=== PATIENT | female | born 2005 | race Caucasian/White ===

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

== ENCOUNTER 2025-03-10 00:41 | Day surgery (SDC) | payer BC, SELFPAY ==
[2025-03-05 13:34] VITALS: BMI 29.1
--- NOTE | 2025-03-05 13:45 | PC.NURSE ---
[facility] has started construction of its new state of the art ER which will open Spring 2026. With this, we anticipate parking may be a challenge for some our surgical patients and families. Parking spaces are limited but are available for all Surgical, obstetrics, and ER patients sharing this lot. If you arrive and find you are having a hard time finding a parking space, please note that we understand the challenges, please drive around the hospital and park near Hospital Entrance 1. When you enter this entrance, you can ask a volunteer to direct or take you back to the surgical waiting area to check in. We appreciate everyone?s understanding of these expected challenges while we build for your future. Report to the Outpatient Waiting Room, entrance under the green pavilion located off [address], at time 0600 on date 03/10/25 . Planned Procedure Time: 0730 .? Time changes happen often and if your time is changed the preop area will call you the afternoon before. - You and your visitor will be asked to self-screen and do not enter if you have any COVID symptoms. Please call surgeon if you need to reschedule. - A mask is optional within the hospital at this time. Patients may have clear liquids (water, carbonated beverages, clear teas, apple juice) until 3 hours prior to surgery with a maximum of 20 ounces. - No food from midnight until time of surgery and no smoking, or chewing tobacco (or any form of nicotine). No chewing gum, candy or mints. Take only the following medications with a SIP of water on the morning of surgery: Vyvanse, Control- Natalie DO NOT STOP ANY OF YOUR OTHER PRESCRIPTION MEDICATIONS PRIOR TO SURGERY EXCEPT THE FOLLOWING Hold all vitamins and supplements for 3 days per anesthesiologist. Medications to discontinue per physician: NA Please no make-up, nail [place], hairspray, perfume, deodorant, or body powder the day of surgery.? No jewelry (including any body piercings) or valuables the day of surgery, leave them at home.? Please take a shower or bath the night before, or the morning of, surgery with an antibacterial soap.? Wear comfortable, loose fitting clothing.? Children are encouraged to wear pajamas. - Jewelry must be removed prior to entering the operating room.? Rings and piercings that are not removed may be cut off. - The hospital will not accept responsibility for valuables.? - Please leave all valuables, including medications, at home the day of surgery. If you are going home after surgery, a licensed petrol tanker driver must drive you home.? - NO public transportation without another adult if you receive anesthesia. - We recommend that an adult stay with you for 24 hours following discharge. - We also recommend that you do not drive, make important decision, drink alcoholic beverages, or take any drugs that were not prescribed by your health care provider for at least 24 hours after your discharge time. Follow any additional instructions given to you from your surgeon. Telephone instructions given to ____patient and asked if any additional questions and then verbalized understanding. Patient advised to call surgeon office or pre surgery nurse liaison [phone] if any additional questions.
[2025-03-10] VITALS (7 sets, daily range): BP systolic 123–154; BP diastolic 80–96; PULSE 67–95; RESP 15–18; TEMP 36.4–36.6; O2SAT 98–100
--- OUTSIDE RECORDS SUMMARY | 2025-03-10 00:44 | XMS_ITS | Clinical Summary ---
Author Organization [facility] Address [address] [place] [id number] Care Team Providers Care Day Haul Youth Supervisor Name Role Phone Unavailable Primary Care Provider Unavailabl e Social History Tobacco Use Types Packs/Day Years Used Date Smoking Tobacco: Never Assessed Comments Unknown Sex and Gender Information Value Date Recorded Sex Assigned at Not on file Legal Sex Female 6:44 PM CDT Gender Identity Not on file Sexual Orientation Not on file Plan of Treatment Health Maintenance Due Date Last Done Comments Annual Physical 09/25/2007 HPV Vaccines (1 - 3-dose series) 09/25/2019 Meningococcal B Vaccine (1 o f 2 - Standard) 2020 Hepatitis C 2022 DTaP, Tdap and Td Vaccines ( 1 - Tdap) 09/25/2023 Hepatitis B Vaccines (1 of 3 - 19+ 3-dose series) 09/25/2023 COVID-19 Vaccine ( - 2024-2 6 season) 2024 Influenza Adult (#1) 2024 Hepatitis A Vaccines Aged Out No long er eligible based on patient's age to complete this topic Meningococcal Vaccine Aged Out No zina edda eligible based on patient's age to complete this topic Pneumococcal Vaccine: Pediat rics (0 to 5 Years) and At-Risk Patients (6 to 49 Years) Aged Out No longer eligible b ased on patient's age to complete this topic RSV Immunizations Under 20 Months Aged Out No longer eligible based on patient's age to complete this topic
--- OUTSIDE RECORDS SUMMARY | 2025-03-10 00:44 | XMS_ITS | Patient Health Record ---
Author Organization [facility] Address [address] [place] [address] Care Team Providers Care Glass Lathe Operator Name Role Phone Rita Moreno APRN Primary Care Provider Unava ilable Zoraida Peyton Unavailable [phone] Kyle Sierra Unavailable [phone] Allergies No Known Allergies Results Component Value Reference Range Notes UDT Reviewed date:01/06/2025 02:47:45 PM Interpretation: Performing Lab: Notes/Report: Amphetamine (AMP) N 0 - 1000 ng/ml Buprenorphine (BUP) N 0 - 10 ng/ml Oxazepam (BZO) N 0 - 300 ng/ml Cocaine (MAURICIO) N 0 - 300 ng/ml Methamphetamine (mAMP) N 0 - 300 ng/ml Methylenedioxymethamphetamine (MDMA) N 0 - 500 ng/ml Morphine (MOP) N 0 - 25 ng/ml Methadone (MTD) N 0 - 300 ng/ml Oxycodone (OXY) N 0 - 300 ng/ml THC N 0 - 50 ng/ml x N 0 - 1000 ng/ml x N 0 - 1000 ng/ml x N 0 - 300 ng/ml x N 0 - 300 ng/ml Reason For Referral No Information Medications Medication SIG (Take, Route, Frequency, Duration) Notes Start Date End Date Status Drospirenone-Ethinyl Estradiol 3-0.03 MG Tablet Oral; Duration: 21 Days Active Lisdexamfetamine Dimesylate 40 MG Capsule 1 capsule in the morning Orally Once a day; Duration: 30 days 02/07/2025 Active Social History Tobacco Use: Social History Observation Description Date Details (start date - stop date) Never Smoker NA - NA Sex Assigned At : Social History Observation Description Sex Assigned At Female Social History Miscellaneous: Social Info Question Answer Notes Safety issues: Are there any firearms in the house? Ye s Social History Social Info Question Answer Notes Household: Marital Status: Single Number of Adults in household: 4 Number of Children in Household: 1 Level of Education: Not Finished College Drug/Alcohol: Social Info Question Answer Notes Drugs Have you used drugs other than those for medical reasons in the past 12 months? No AUDIT-C (Standard) Did you have a drink containing alcohol in the past year? No Interpretation Negative Caffeine Intake: none Tobacco Use: Social Info Question Answer Notes Tobacco Control (Standard) Tobacco use: Nonsmoker Additional Details Category Social Info Options Details Drug/Alcohol: Do you smoke marijuana? Den ies Problems Problem Type SNOMED Code ICD Code Onset Dates Problem Status W/U Status Risk Notes Problem Attention deficit hyperactivity disorder, combined type (42683981) Attention-deficit hyperactivity disorder, combined type (F90.2) Active confirmed Problem Unable to concentrate (finding) (81417590) Difficulty concentrating (R41.840) Active confirmed Vital Signs Heart Rate 112 /min 02/07/2025 Height-cm 167.64 cm 02/07/2025 Blood pressure diastolic 86 mm Hg 02/07/2025 Weight-kg 79.38 kg 02/07/2025 Height 66 in 02/07/2025 Blood pressure systolic 131 mm Hg 02/07/2025 Weight 175 lbs 02/07/2025 BMI 28.24 kg/m2 02/07/2025 Procedures Procedure Date Ordered Date Performed Result Body Sit e ADHD Testing 12/23/2024 N/A Encounters Encounter Location Date Provider Diagnosis [facility] [address] [facility] [address] [place] [address] 12/23/2024 Peyton Conway Difficulty concentrating R41.840 [facility] [place] [address] 12/30/2024 Kyle Sierra Attention deficit hyperactivity disorder (ADHD), unspecified ADHD type F90.9 [employer] [facility] [address] [facility] [address] [place] [address] 01/06/2025 Peyton Conway Attention-deficit hyperactivity disorder, combined type F90.2 [facility] [address] [facility] [address] [place] [address] 02/03/2025 Peyton Conway [facility] [address] [place] [address] 02/07/2025 Peyton Conway Attention-deficit hyperactivity disorder, combined type F90.2 Assessments Encounter Date Diagnosis (ICD Code) Assessment Notes Treatment Notes Treatment Clinical Notes Section Notes 01/06/2025 Attention-defici t hyperactivity disorder, combined type (ICD-10 - F90.2) ADHD Stimulant Education -Discussed with patient risk of misuse, abuse, and addiction before prescribing stimulant medicines. -Counseled not to share their prescribed stimulant with anyone else. -Educated patient will monitor during treatment: regularly assess and monitor them for signs and symptoms of nonmedical use, addiction, and potential diversion, which may be evidenced by more frequent renewal requests and medication metabolites absent from urine drug screens. -Random UDS (at least every three months or more frequently deemed by provider). -Per office policy, only prescribed to local pharmacy in [place], no early refills on control substance. 12/23/2024 Difficulty concentrating (ICD-10 - R41.840) Pre-treatment evaluation and contraindications Before initiating treatment with a stimulant in adults, we review their cardiovascular history, including chest pain, palpitations, syncope, myocardial infarction, arrhythmia, valvular disease, and family history. We measure blood pressure and pulse in all patients and obtain an electrocardiogram (ECG) in individuals with cardiac history or cardiac symptoms such as palpitations or chest pain. In individuals with a cardiac history, or when findings outside normal limits are seen, we consult a assistant producer to determine whether the results are sufficiently severe to avoid these medications. We also rule out DANIEL; if you are using cannabis, are heavy alcohol, or are using other street drugs and have a history of DANIEL, than we consider non-stimulant treatment. We also do routine and random UDT If you refuse or fail to give urine for urine, then we will not prescribe controlled substances. If your urine comes positive for medicine (which are not prescribed to you) and illicit drugs (including Cannabis) then we will not prescribe a controlled substance There is a charge for Stimulant refills 02/07/2025 Attention-defici t hyperactivity disorder, combined type (ICD-10 - F90.2) ADHD Stimulant Education -Discussed with patient risk of misuse, abuse, and addiction before prescribing stimulant medicines. -Counseled not to share their prescribed stimulant with anyone else. -Educated patient will monitor during treatment: regularly assess and monitor them for signs and symptoms of nonmedical use, addiction, and potential diversion, which may be evidenced by more frequent renewal requests and medication metabolites absent from urine drug screens. -Random UDS (at least every three months or more frequently deemed by provider). -Per office policy, only prescribed to local pharmacy in [place], no early refills on control substance. 12/30/2024 Attention deficit hyperactivity disorder (ADHD), unspecified ADHD type (ICD-10 - F90.9) Patient Name: Noemi Walker Date of : Assessment Date: Group: Female, Age 18-24 Report Type: ADHD Assessment Assessment Tool: ASRS v1.1 - Part A Questionnaire and Cognitive Battery Findings: The ASRS v1.1 - Part A score is 6, which exceeds the threshold of 3 and is classified as indicative of ADHD. Additionally, three cognitive markers fall outside the typical range, supporting attentional and executive function difficulties. In the Attention task, the patient made 4 errors (85th percentile) with a significantly prolonged reaction time (3339 milliseconds, 90th percentile), indicating slower and less accurate performance. Impulsivity was flagged as less accurate, but not faster, suggesting inefficiency without compensatory speed. Spatial Working Memory scored at the 15th percentile, indicating difficulties retaining and manipulating spatial information over short periods, which may affect real-world planning and organization. Response Inhibition performance showed mildly impaired accuracy and cognitive control. The number of errors was low but in the 15th percentile. Interference ratio for reaction time was in the 85th percentile, suggesting the patient required more time to manage conflicting information. Sustained Attention results were mixed but suggestive of attentional instability. Reaction time variability (90th percentile) and slowing after errors (76th percentile) reflect inconsistency and increased effort in recovering from performance errors. Interpretation: These results are consistent with ADHD, likely of the inattentive or combined presentation. The elevated ASRS score, combined with slower reaction times, reduced spatial working memory, and high variability across attention-relate d tasks, suggest significant functional inefficiencies in attention regulation and executive control. Recommendations: 1. Recommend starting treatment with non-stimulant medication such as atomoxetine or extended-release guanfacine, which may support attentional stability and executive function. 2. If non-stimulant options are insufficient, stimulant medication may be considered. However, stimulant treatment is not recommended if the patient is using or abusing drugs, alcohol, or cannabis. 3. Prior to initiating stimulant therapy, a urine drug screen should be conducted. Follow-up visits are essential for dosage adjustments and monitoring of blood pressure and weight. 4. Strongly encourage non-pharmacologi ryan interventions, including: - Attention training exercises and digital cognitive training tools - Time management strategies such as task segmentation, planners, and visual timers - Cognitive-behavi oral therapy to build metacognitive awareness and focus regulation - Structured routines and reduced distractions in learning or work environments These findings should be interpreted alongside a full clinical interview to support diagnosis and develop an individualized treatment plan. 12/23/2024 Other History of ADHD diagnosis in 2nd grade. Pt unsure of formality of diagnostic evaluation at this time, no current access to records. Schedule for ADHD evaluation to confirm diagnosis, provide diagnostic baseline. Await for results prior to initiating medication therapy. -Assessment and treatment plan reviewed with patient. -Compliance with treatment plan importance discussed. -Discussed the risks/benefits of this medication -Discussed medication side effects. -Contact office if symptoms worsen. -Discussed that it can take up to 6-8 weeks to see full therapeutic effects of psychotropic medications. -Crisis prevention hotline 988. 01/06/2025 Other ADHD eval reviewed, supportive of diagnosis Start lisdexamfetamine 40mg daily for ADHD management Patient educated on all medications including potential benefits, side effects, risks. Educated on proper dosing schedule and importance of compliance. [place] PDMP report checked and consistent with prescription history, no controlled substance prescriptions from other providers. UDT completed today -Assessment and treatment plan reviewed with patient. -Compliance with treatment plan importance discussed. -Discussed the risks/benefits of this medication -Discussed medication side effects. -Contact office if symptoms worsen. -Discussed that it can take up to 6-8 weeks to see full therapeutic effects of psychotropic medications. -Crisis prevention hotline 988. 02/07/2025 Other Stable on current medication regimen, continue at current doses. -Refills sent in today -No concerns today Patient educated on all medications including potential benefits, side effects, risks. Educated on proper dosing schedule and importance of compliance. [place] report checked and consistent with prescription history, no controlled substance prescriptions from other providers. -Assessment and treatment plan reviewed with patient. -Compliance with treatment plan importance discussed. -Discussed the risks/benefits of this medication -Discussed medication side effects. -Contact office if symptoms worsen. -Discussed that it can take up to 6-8 weeks to see full therapeutic effects of psychotropic medications. -Crisis prevention hotline 687. Plan Of Treatment Pending Test Test Name Order Date ADHD Testing 12/23/2024 Insurance Providers Payer Name Payer Address Payer Phone Subscriber Number Group Number Insured Name Patient Relationship to Insured Coverage Start Date Coverage End Date [facility] [address] [place] [address] [id number] Noemi Walker Self - patient is the insured Medical (General) History Medical History History ICD Code ADHD PCOS Past Psychiatric History: Anxiety Disord er undefined abdominal aortic aneurysm: No chronic fatigue syndrome: No essential tremor: No hyperlipidemia: No Parkinson's disease: No restless leg syndrome: No subdural hematoma: No type 1 diabetes mellitus: No type 2 diabetes mellitus: No vitamin B12 deficiency: No vitamin D deficiency: No atrial fibrillation: No hypertension: No stroke: No
--- OUTSIDE RECORDS SUMMARY | 2025-03-10 00:44 | XMS_ITS | Clinical Summary ---
Author Organization [facility] Address [address] [place] [id number] Care Team Providers Care Plate Molder Name Role Phone Unavailable Primary Care Provider Unavailabl e Social History Tobacco Use Types Packs/Day Years Used Date Smoking Tobacco: Never Assessed Comments Unknown Sex and Gender Information Value Date Recorded Sex Assigned at Not on file Legal Sex Female 10:19 AM CLINICAL SERVICES PROFESSIONAL Gender Identity Not on file Sexual Orientation Not on file Plan of Treatment Health Maintenance Due Date Last Done Comments Hepatitis C Virus (HCV) Screening 2004 Meningococcal B Immunization (1 of 2 - Standard) 2020 Influenza Immunization (#1) 11/25/202412/26, 11/22/2019, 01/07/2019, Additional history exists SARS-COV-2 Immunization ( season) 2024 03/28/2021, 08/30/2020, 08/09/2020 Respiratory Syncytial Virus (RSV) Immunization (Adult) (1 - 1-dose 75+ series) 09/25/2079 Hepatitis B Immunization Completed 006, 02/07/2005, 2004 Pneumococcal Immunization Combined Aged Out 10/10/2005, 04/11/2005, 02/07/2005, Additional history exists No longer eligible based on patient's age to complete this topic Hepatitis A Immunization Discontinued 01/09/2007, 12/25 Measles Mumps Rubella (MMR) Immunization Discontinued 10/09/2008, 10/10/2005 Polio (IPV) Immunization Discontinued 009, 04/11/2005, 02/07/2005, Additional history exists Varicella Immunization Discontinued 10/09/2008, 2005 DTaP/Tdap/Td Immunization Discontinued 2015, 10/09/2008, 01/09/2006, Additional history exists TdaP Immunization Completed 10/29/2015 Human Papillomavirus (HPV) Immunization Completed 07/29/2016, 01/13/2016, 10/29/2015 Meningococcal Immunization (ACWY) Completed 10/22/2020, 10/29/2015 Rotavirus Immunization Aged Out No lo nger eligible based on patient's age to complete this topic
--- OUTSIDE RECORDS SUMMARY | 2025-03-10 00:44 | XMS_ITS | Clinical Summary ---
Author Organization [facility] Address [address] [place] [address] Care Team Providers Care Entry Specialist Name Role Phone Annamarie Jansen MD Primary Care Provider [phone] Source Comments [facility],non-owned Affiliates and Associated Physician Practices is amultiple site organization consisting of ambulatory clinics and hospital sitesin [place], [place], [place] and [place]. This disclosure is being madepursuant to the Care Everywhere program and may not contain all information available regarding this patient. Last updated 17.[employer] Allergies No known active allergies Medications * Be aware that medications may not be up to date on this document. Alwaysverify current medications with the patient. XULANE 150-35 MCG/24HR patch Apply 1 (one) patch to affected area every 7 days 0 Active lisdexamfetamine (Vyvanse) 60 MG capsuleIndications :Attention deficit hyperactivity disorder (ADHD), predominantly inattentive type Take 1 (one) capsule by mouth every morning 30 capsule 3 Active Active Problems Problem Noted Date Diagnosed Date Elevated blood pressure reading 10/22/2020 Elevated cholesterol with high triglycerides Attention deficit hyperactivity disorder (ADHD) 03/25/2019 Resolved Problems Problem Noted Date Diagnosed Date Resolved Date Encounter for medication monitoring 11/22/2019 11/22/2019 Immunizations Immunization Administration Dates Next Due DTAP HIB IPV 10/09/2008 DTaP VACCINE IM (6wk-6yrs) 01/09/2006,,02/07/2005,12/06 HEP A PEDS 2 DOSE 01/09/2007,01/09/2006 HEP B VACCINE, PED/ADOL 04/11/2005,02/07/2005, HIB-PRP-OMP 3 DOSE 01/09/2006,02/07/2005, 005 Human Papilloma Virus Nineva lent Vaccine 07/29/2016,01/13/2016,10/29/2015 INFLUENZA T4L8-03, HISTORIC VACCINE 03/17/2009,1 04/11/2008 INFLUENZA VACCINE 01/07/2019, 8,01/19/2017,12/24,01/05/2015,12/24/2013,01/07/2013 ,12/29/2011,02/01/2011,02/02/2010,12/26 INFLUENZA VACCINE, CELL CULT URE, QUADR. (FLUCELVAX QUADRIVALENT; 6MO+) (CCIIV4) 02/11/2022 INFLUENZA VACCINE, QUADR. (F LUZONE; FLULAVAL; FLUARIX; AFLURIA QUADRIVALENT; 6MO+), 0.5 ML (IIV4) 01/13/2021,11/22/2019 MENINGOCOCAL MENINGITIS 10/29/2015 MENINGOCOCCAL ACWY (MCV4P) VAC IM 10/22/2020 MMR 10/09/2008,10/10/2005 PNEUMOCOCCAL PCV7 CONJ, PEDS 10/10/2005, 04/11/2005,02/07/2005,12/06 POLIO IPV 04/11/2005,02/07/2005,2004 TDAP (7yrs+) 10/29/2015 VARICELLA 10/09/2008,10/10/2005 Family History Medical History Relation Name Comments Hyperlipidemia Mother Relation Name Status Comments Mother Social History Tobacco Use Types Packs/Day Years Used Date Smoking Tobacco: Never PHQ-2 Answer Date Recorded PHQ2 TOTAL SCORE 0 06/23/2022 Comments Unknown Sex and Gender Information Value Date Recorded Sex Assigned at Not on file Legal Sex Female 5:44 AM [employer] Gender Identity Not on file Sexual Orientation Not on file Last Filed Vital Signs Vital Sign Reading Time Taken Comments Blood Pressure 134/87 06/23/2022 2:36 PM CDT Pulse 104 06/23/2022 2:36 PM CDT Temperature 37.1 C (98.7 F) 06/23/2022 2:36 PM CDT Respiratory Rate 24 06/11/2014 2:06 PM CDT Oxygen Saturation 100% 06/11/2014 12:36 PM CDT room air Inhaled Oxygen Concentration - - Weight 70.3 kg (155 lb) 06/23/2022 2:36 PM CDT Height 163.8 cm (5' 4.5) 06/23/2022 2:36 PM CDT Body Mass Index 26.19 06/23/2022 2:36 PM CDT Plan of Treatment Health Maintenance Due Date Last Done Comments HIV SCREENING 09/25/2019 CHLAMYDIA/GONORRHEA SCREENING 2020 MENINGOCOCCAL (Group B) VACC INE SHARED DECISION-MAKING (1 of 2 - Standard) 2020 HEPATITIS C SCREENING 09/20/2022 DEPRESSION SCREENING 03/27/2024 06/23/2022, 10/23/19 22 COVID-19 VACCINE (5 2024-2 6 season) 2024 12/24/2021, 03/28/2021, 08/30/2020, Additional history exists INFLUENZA VACCINE (#1) 2024 , 01/13/2021, 11/22/2019, Additional history exists DTAP/TDAP/TD VACCINES (7 - T d or Tdap) 10/28/2025 10/29/2015, 10/09/2008, 01/09/2006, Additional history exists ZOSTER VACCINE (1 of 2) 2054 HEPATITIS B VACCINE Completed 04/11/2005, 02/07/2005, 2004 PNEUMOCOCCAL VACCINE Completed 10/10/2005, 04/11/2005, 02/07/2005, Additional history exists HIB VACCINE Completed 10/09/2008, 12/25, 02/07/2005, Additional history exists HPV VACCINE Completed 07/29/2016, 12/25, 10/29/2015 MENINGOCOCCAL GROUPS A/C/Y/W VACCINE Completed 10/22/2020, 10/29/2015 Insurance ANTHEM Care Teams Entry Specialist Relationship Specialty Start Date End Date Annamarie Jansen MD PCP - General Pediatrics 03/25/19
[2025-03-10] MEDS: ACETAMINOPHEN 500 MG TABLET 1000 MG PO (06:32)
[2025-03-10] MEDS: OXYMETAZOLINE HCL 0.05% NAS 15 ML BTL (*BKC) 1 SPRAY NASAL (06:35)
[2025-03-10] MEDS: LACTATED RINGERS 1,000 ML 30 ML IV CONT ×2 (06:45→08:38)
--- NOTE | 2025-03-10 06:55 | P.PNAN_ITS ---
Anes - Initial Pre Proc Eval Procedure: Operation Date: 03/10/25 07:30 Proposed Procedures p Fusion Guided Right Ethmoidectomy, Bilateral Turbinate Reduction - Palmer Bennett MD s Septoplasty - Palmer Bennett MD Date/Time: 03/10/25 06:55 Surgeon: Palmer Bennett MD Pre Op Diagnosis: deviated septum, turbinate hypertrophy Patient Data Age: 19 Gender: F Height: 1.65 m Weight: 79.5 kg Allergies Allergy/AdvReac Type Severity Reaction Status Date / Time No Known Allergies Allergy Verified 03/10/25 06:22 Home Medications ?Medication ?Instructions ?Recorded ?Confirmed ?Type drospirenone 3 mg-ethinyl 1 tablet PO Q24H #112 tabs 0 10/08/24 03/10/25 Rx estradiol 0.03 mg tablet (Natalie (28)) lisdexamfetamine 40 mg capsule 40 mg PO DAILY 03/05/25 03/10/25 History (Vyvmaine) Patient hx anesthesia problems: none Family hx anesthesia problems: none Results Review: All pre-operative results and documents have been reviewed as part of the pre- operative evaluation. [facility] Past Medical History Medical History PCOS (polycystic ovarian syndrome) ADHD Family History Family History Mother Endometriosis Social History Social History Smoking status: Never smoker Alcohol intake: never Substance use: never Substance use type: does not use Lack of Transportation: No Lack of Food: Never True Current Housing: I Have Housing Concerned About Future Housing: No Difficulty Paying Gas/Electric Bills: No Difficulty Paying for Meds: No Currently Unemployed: No Education: High School Diploma/GED Difficulty w/ Childcare or Family Care: No Living arrangements: with family Occupation/Education: student Additional occupation/education comments: college [employer] Gender identity (if verbalized by the patient): Female Sexual Orientation (if Verbalized by the Patient): Bisexual Spiritual care concerns: No Agree to blood products: Yes Anes - Eval Final PreProcedure Day of Procedure 03/10/25 06:55 Patient weight: obese Heart: regular rate and rhythm Lungs: clear to auscultation Airway: Mallampati scale class II Neurological: alert and oriented Last oral intake: >/= 8 hours ASA classification: II Emergent: no Anesthetic plan: proceed Anesthesia type and monitoring: general ETT and standard monitoring Results Review: All pre-operative results and documents have been reviewed as part of the pre- operative evaluation. Informed Consent: The patient's anesthetic plan and its attendant risks and benefits were discussed with the patient/family/POA. Questions were solicited and answers provided to the satisfaction of the patient/family/POA.
--- NOTE | 2025-03-10 07:03 | PM.IMHP2 ---
H&P: HPI History of Present Illness Date/Time: 03/10/25 07:03 Chief Complaint: deviated septum, chronic sinusitis Review of Systems Review of Systems: All systems reviewed & are unremarkable except as noted in HPI and below PMFSH Past Medical History Medical History PCOS (polycystic ovarian syndrome) ADHD Family History Family History Mother Endometriosis Social History Social History Smoking status: Never smoker Alcohol intake: never Substance use: never Substance use type: does not use Lack of Transportation: No Lack of Food: Never True Current Housing: I Have Housing Concerned About Future Housing: No Difficulty Paying Gas/Electric Bills: No Difficulty Paying for Meds: No Currently Unemployed: No Education: High School Diploma/GED Difficulty w/ Childcare or Family Care: No Living arrangements: with family Occupation/Education: student Additional occupation/education comments: college [employer] Gender identity (if verbalized by the patient): Female Sexual Orientation (if Verbalized by the Patient): Bisexual Spiritual care concerns: No Agree to blood products: Yes Meds Home Medications and Allergies Home Medications ?Medication ?Instructions ?Recorded ?Confirmed ?Type drospirenone 3 mg-ethinyl 1 tablet PO Q24H #112 tabs 10/08/24 03/10/25 Rx estradiol 0.03 mg tablet (Natalie (28)) lisdexamfetamine 40 mg capsule 40 mg PO DAILY 03/05/25 03/10/25 History (Aurea) Allergies Allergy/AdvReac Type Severity Reaction Status Date / Time No Known Allergies Allergy Verified 03/10/25 06:22 Vital Signs Vital Signs - 24 hr 03/10/25 06:10 Temperature 36.4 C L Pulse Rate 92 Respiratory Rate 18 Blood Pressure 123/80 Pulse Oximetry 98 Oxygen Delivery Room Air Exam Narrative: deviated septum, chronic sinusitis Assessment and Plan Assessment and plan (1) Eustachian tube dysfunction: Qualifiers: Laterality: left Qualified Code(s): H69.92 - Unspecified Eustachian tube disorder, left ear Code(s): H69.90 - Unspecified Eustachian tube disorder, unspecified ear Status: Acute (2) Chronic sinusitis: Qualifiers: Sinusitis location: maxillary Qualified Code(s): J32.0 - Chronic maxillary sinusitis Code(s): J32.9 - Chronic sinusitis, unspecified Status: Acute Plan deviated septum, chronic sinusitis. r/b/a reviewed with patient who understands and agrees with the plan. refer to outpatient H&P for further details.
[2025-03-10] MEDS: SCOPOLAMINE 1 MG PATCH 1 PATCH TRANSDERM (07:20)
--- NOTE | 2025-03-10 07:26 | WPDHPUPDATE1 ---
History and Physical Update Update Date/Time: 03/10/25 07:26 History and Physical has been reviewed, including an updated exam of the patient. There are NO changes in the patient's condition. Risks, benefits, and alternatives have been discussed and questions answered. Patient agrees to proceed with procedure.
--- NOTE | 2025-03-10 07:29 | SUR.PREOP ---
Per Dr. Bennett, preoperative laterality clara is not necessary for this case.
[2025-03-10] MEDS: ceFAZolin 2 GM in SODIUM CHLORIDE 0.9% IV 50 ML 100 ML IVPB (07:32)
[2025-03-10] MEDS: LIDO 1%/EPINEPHRINE 1:100,000 50 ML VIAL ×2 (07:49)
[2025-03-10] MEDS: MUPIROCIN 2% OINT 22 GM TUBE 1 APPLIC TOPICAL (08:17)
--- NOTE | 2025-03-10 08:30 | P.OP_ITS ---
Procedure Note - Detailed Date of Procedure 03/10/25 Pre-op Diagnosis deviated septum, turbinate hypertrophy Post-op Diagnosis Same Procedure Performed Septoplasty, bilateral inferior turbinoplasty, right total ethmoidectomy Surgeon Palmer Bennett MD Anesthesia General Indications chronic sinusitis and deviatd septum Findings left septal deviation, right nasopore placed, bilateral cancino splints placed Description of Procedure After obtaining informed consent and proper site verification the patient was brought to the operating room and placed on the operating table in the supine position. They were placed under general endotracheal anesthesia by the anesthesia provider. The patient was then draped in standard fashion for septoplasty and turbinoplasty. A timeout was performed and the correct patient and procedure were verified. The nasal cavity was injected with 1% lidocaine with 1-100,000 epinephrine and packed with afrin-soaked cottonoid pledgets. ? Attention was then directed to the nasal septum. A hemitransfixion incision was made in the left caudal septum and a mucoperichondrial flap was elevated in the usual fashion. The flap was elevated under endoscopic visualization and the remainder of the case was performed with endoscopic assistance. Using a D- knife, an incision was made through the cartilaginous septum with care to preserve the appropriate caudal and dorsal ?L-strut? of cartilage. The cartilage was then disarticulated from the bony-cartilaginous junction and the deviated cartilage was removed. Further deviated bone and cartilage was removed from the maxillary crest and posterior bony septum with care to avoid injury to the mucoperichondrial flap using a combination of dissection and Liam- Escalante forceps. Once this was completed, the hemitransfixion incision was closed using simple interrupted 4-0 chromic suture. A quilting stitch to reapproximate the mucoperichondrial flaps was then placed using 4-0 plain gut suture on a Gee needle. ? Next attention was directed to the turbinates. Using a 0? telescope and 2mm turbinate blade microdebrider, a stab incision was made in the anterior face of the turbinate and dissection was carried posterior to perform submucosal resection. Next the turbinate was outfractured using a blunt instrument. A similar procedure was then performed on the right-hand side without difficulty. Next, attention directed to the right ethmoid sinus. The middle turbinate was medialized. Using image guided microdebrider, the anterior and posterior ethmoid sinuses were penetrated and then dissected fully along the skull base, l farhana paprycia and to the base of the sphenoid. All fragments of bone and mucosa removed. Nasopore then placed in the ethmoid cavity. Lastly, Cancino splints covered in mupirocin ointment were placed in the nasal cavity and secured to the membranous septum using a 3-0 Prolene suture. ?The patient was awakened from general anesthesia extubated in the operating room, and transported to the recovery room in stable condition without complication. Packing Yes (cancino splints and nasopore on right) Complications No immediate complications
[2025-03-10] MEDS: fentaNYL CITRATE INJ (*CRX) 100 MCG/2 ML VIAL 25 MCG IV PUSH ×4 (08:52→09:13)
[2025-03-10] MEDS: oxyCODONE HCL (*CRX) 5 MG TAB IR PO (09:43)
== END 2025-03-10 10:23 | disposition home or self-care (01) ==
PROVIDERS: PCP Nurse Practitioner Family; Visit Provider Otolaryngology
PROC: (CPT 31255; principal; 2025-03-10 07:30)
PROC: (CPT 30520; 2025-03-10 07:30)
DX: J32.0 Chronic maxillary sinusitis (principal); H69.92 Unspecified Eustachian tube disorder, left ear; J34.3 Hypertrophy of nasal turbinates; J34.2 Deviated nasal septum; E66.9 Obesity, unspecified; Z68.31 Body mass index [BMI] 31.0-31.9, adult
CPT/HCPCS: 31255; 61782; 30520; 30140; J0690; A9270; J0330; J1100; J1171; J2003; J2004; J2250; J2405; J2704; J3010; J7050; J7120